=== PATIENT | female | born 1950 | race Caucasian/White ===

== ENCOUNTER 2019-12-20 13:13 | Outpatient (CLI) | payer MEDICAID, SELFPAY ==
--- NOTE | 2019-12-20 13:34 | XR_ITS ---
WS: [id number] Right knee, 3 views, 12/20/2019 Clinical Data: OSTEOARTHRITIS OF KNEE Comparison: None. Findings: No fractures or dislocations are seen. The joint spaces are normal. The patella is intact. The soft t issues are unremarkable. XR/XR knee RT 3V* [id number] Impression: Negative right knee.
== END 2019-12-20 13:14 | disposition home or self-care (01) ==
LOC: RADWPI 13:18
DX: M17.11 Unilateral primary osteoarthritis, right knee (principal)
CPT/HCPCS: 73562

== ENCOUNTER 2021-09-18 13:38 | Emergency (ER) | payer MEDICAID, SELFPAY ==
[2021-09-18 14:10] VITALS: BP 157/82; PULSE 78; RESP 20; TEMP 36.3; O2SAT 97; BMI 48.1
[2021-09-18 14:34] VITALS: RESP 16
--- NOTE | 2021-09-18 14:39 | W.ED.EXTPRO ---
Documented by User: СВЕТЛАНА Sheth 09/21/21 07:09 HPI - Extremity Problem General: Chief complaint: Extremity Problem,Nontraumatic Stated complaint: POSS CELLULITIS ON ANKLES/ITCHING/PAIN Time Seen by Provider: 09/18/21 14:19 Source: patient Mode of arrival: wheelchair Limitations: no limitations History of Present Illness: HPI Narrative: Patient is a 71-year-old female presents to ED today with a complaint of bilateral lower extremity redness and swelling. She tells me she has a chronic history of lymphedema and states her lower extremities are always red and swollen. She has a new area to her right anterior lower leg that recently began draining that she is concerned with. She has not been running fevers. No chills or body aches. Patient reports chronic lower extremity neuropathy. She has never seen wound care for her extremities and does not have home health services. MD Complaint: extremity pain and extremity swelling Pain Consistency: constant Location: left, right and lower extremity Radiation: none Relieving factors: nothing Exacerbating factors: nothing Associated symptoms: Reports no associated symptoms; Deny chest pain or fever(s) Review of Systems Const: Denies: fever(s), chills, body aches, fatigue or malaise Card: Denies: chest pain Resp: Denies: dyspnea Musc: Reports: extremity pain and extremity swelling; Denies: joint pain, joint swelling, joint redness or joint warmth Skin/Breast: Reports: other (chronic LE redness/swelling/pain) Neuro: Denies: numbness in extremities or sensory changes Physical Exam Const: COMMON NORMALS: no acute distress, patient oriented x3, no limitations and alert GENERAL APPEARANCE: cooperative NUTRITIONAL APPEARANCE: obese morbidly obese ORIENTATION/CONSCIOUSNESS: Yes awake, Yes oriented to person, Yes oriented to place and Yes oriented to time HENMT: COMMON NORMALS: normocephalic and atraumatic HEAD & SCALP: normal to inspection, normocephalic and atraumatic Resp: COMMON NORMALS: normal respiratory effort Cardio: COMMON NORMALS: regular rate and regular rhythm RATE: regular rate RHYTHM: regular rhythm Extremity: GENERAL: Yes normal exam except as noted OTHER: bilateral LE lymphedema present; there is redness equally bilaterally that patient reports is fairly chronic for her; she has two areas to anterior lower R leg that appear to be developing small superficial wounds and are draining clear/yellow fluid; there is no significant warmth; no lymphangitic streaking; distal pulses/cap refill intact; sensory patient states is at her baseline stating she has chronic neuropathy Neuro: COMMON NORMALS: patient oriented x3, moves all extremities, no focal motor deficits and no sensory deficits noted SENSORIUM/ORIENTATION: Yes alert, Yes oriented to person, Yes oriented to place and Yes oriented to time Skin: NARRATIVE SKIN EXAM: see extremity assessment Course Vital Signs: Vital signs: Vital Signs Temperature 97.4 F L 09/18/21 14:10 Pulse Rate 86 09/18/21 14:51 Respiratory Rate 18 09/18/21 14:51 Blood Pressure 156/69 09/18/21 14:51 Pulse Oximetry 97 09/18/21 14:51 MDM - Extremity (Nontraumatic) MDM Narrative: Medical decision making narrative: Patient here with chronic lower extremity lymphedema. Patient is not tachycardic or febrile. Do not feel labs at this point would be overly beneficial as they are unlikely to change management analyst. She states she is supposed to be wearing wraps/compression stockings but states she cannot bend over far enough to put them on. Patient does not see wound care or have any home health services. Will place referral for wound care for further evaluation and treatment. She has a small area to her right lower extremity that she is concerned about. We will go ahead and place her on keflex and have her begin applying mupirocin ointment. Return to ED precautions given. Discharge Plan Discharge Patient Disposition: Home Clinical Impression: Lymphedema of lower extremity Qualifiers: Laterality: bilateral Qualified Code(s): I89.0 - Lymphedema, not elsewhere classified Condition: Stable Prescriptions: New cephalexin 500 mg capsule 500 mg PO Q6H 7 Days Qty: 28 RF: 0 mupirocin 2 % ointment 1 applic topical BID Qty: 15 RF: 0 Discharge Orders: Discharge ED (Routine); Ordered 09/18/21 Ordered By: Jeanette Ivey Patient Instructions: Lymphedema, Lymphedema (ED) Coding Level of Care Code ED Camp Attendant for Chg Fwd Exam Detailed Documented by User: Jose Luis Griffin MD 09/23/21 11:04 HPI - Extremity Problem General: Chief complaint: Extremity Problem,Nontraumatic Stated complaint: POSS CELLULITIS ON ANKLES/ITCHING/PAIN Time Seen by Provider: 09/18/21 14:19 Course Vital Signs: Vital signs: Vital Signs Temperature 97.4 F L 09/18/21 14:10 Pulse Rate 86 09/18/21 14:51 Respiratory Rate 18 09/18/21 14:51 Blood Pressure 156/69 09/18/21 14:51 Pulse Oximetry 97 09/18/21 14:51 MDM - Extremity (Nontraumatic) MDM Narrative: Medical decision making narrative: I reviewed this documentation. Jose Luis Griffin MD Emergency Medicine Discharge Plan Discharge Patient Disposition: Home Clinical Impression: Lymphedema of lower extremity Qualifiers: Laterality: bilateral Qualified Code(s): I89.0 - Lymphedema, not elsewhere classified Condition: Stable Prescriptions: New cephalexin 500 mg capsule 500 mg PO Q6H 7 Days Qty: 28 RF: 0 mupirocin 2 % ointment 1 applic topical BID Qty: 15 RF: 0 Discharge Orders: Discharge ED (Routine); Ordered 09/18/21 Ordered By: Jeanette Ivey Patient Instructions: Lymphedema, Lymphedema (ED) Coding Level of Care Code ED Camp Attendant for Chg Fwd Exam Detailed
[2021-09-18 14:51] VITALS: BP 156/69; PULSE 86; RESP 18; O2SAT 97
--- NOTE | 2021-09-20 16:22 | DCPLANNER ---
manager salt had message to schedule a follow up appointment for patient with Wound Care. manager salt called the Wound Care clinic, spoke with Jazmyne, gave clinic patients information. A follow up appointment was scheduled for Friday, September 24, 2021 at 10:[address] [facility] [address]. Bernal. manager salt called patient and gave patient the appointment information.
--- NOTE | 2021-10-05 06:25 | DCPLANNER ---
Patient had a follow up appointment scheduled for 09.24.21 with Wound Care - patient did attend appointment.
== END 2021-09-18 14:53 | disposition home or self-care (01) ==
PROVIDERS: Emergency Provider Physician Assistant
DX: I89.0 Lymphedema, not elsewhere classified (principal)
CPT/HCPCS: 99281

== ENCOUNTER 2021-09-27 14:25 | Outpatient (CLI) | payer MEDICAID, SELFPAY | END 2021-09-27 14:26 | disposition home or self-care (01) | LOC: WOUND 14:25 | PROVIDERS: Visit Provider Nurse Practitioner Family | DX: L97.811 Non-pressure chronic ulcer of other part of right lower leg limited to breakdown of skin (principal); F17.210 Nicotine dependence, cigarettes, uncomplicated; J44.9 Chronic obstructive pulmonary disease, unspecified | CPT/HCPCS: 99212 ==

== ENCOUNTER 2022-03-28 06:00 | Outpatient (RCR) | payer MEDICAID, SELFPAY | END 2022-04-21 23:59 | disposition home or self-care (01) | LOC: SPT 06:00 | PROVIDERS: PCP Nurse Practitioner Family; Referring Provider Nurse Practitioner Family; Visit Provider Nurse Practitioner Family | DX: I87.2 Venous insufficiency (chronic) (peripheral) (principal); I89.0 Lymphedema, not elsewhere classified | CPT/HCPCS: 29581; 97140; 97161 ==

== ENCOUNTER 2022-04-11 08:29 | Emergency (ER) | payer MEDICAID, SELFPAY ==
[2022-04-11 08:47] VITALS: BP 176/71; PULSE 98; RESP 30; TEMP 36.6; O2SAT 96; BMI 45.1
--- NOTE | 2022-04-11 09:09 | ECG_ITS ---
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 Measurements Intervals [place] Rate: 97 P: 22 CT: 168 QRS: 84 QRSD: 89 T: 42 QT: 327 QTc: 417 Interpretive Statements SINUS RHYTHM Compared to ECG 05/07/2019 03:43:05 No significant changes Electronically Signed On 04-11-2022 21:22:10 CDT by Alessandra Fermin M.D. [id number]
--- NOTE | 2022-04-11 09:10 | XR_ITS ---
WS: [id number] Exam: XR chest 1V portable [id number] Date/Time of Exam: 04/11/2022 9:12 AM Reason For Exam: dyspnea/cough Comparison 04/27/2019. The lungs are fully expanded and clear. 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 Bony structures are intact. XR/XR chest 1V portable [id number] IMPRESSION: 1. No acute cardiopulmonary finding. 2. Aneurysmal dilatation of the thoracic aorta as noted above.
--- NOTE | 2022-04-11 09:20 | CT_ITS ---
WS: [id number] CT ABDOMEN PELVIS TECHNIQUE: Noncontrast CT of the abdomen and pelvis with coronal and sagittal reformatted images. CLINICAL INFORMATION: Abdominal pain COMPARISON: None. DLP: 1645.[address] scans at [facility] use at least one of these dose optimization techniques: automated e xposure control; mA and/or kV adjustment per patient size (includes targeted exams where dose is matc hed to clinical indication); or iterative reconstruction. FINDINGS:Slight induration with mild colonic thickening about the RIGHT hepatic flexure suspicious fo r mild or early colitis. Colon is otherwise normal in appearance. Lung bases are well aerated. Slight atelectasis LEFT lower lobe about the aorta and RIGHT lower lobe. Tortuous and ectatic lower thoracic and upper abdominal aorta measuring 4.5 cm in maximum dimension. Slightly irregular peripheral mural thrombus. This can be further evaluated with CTA. Distal abdomin al aorta is normal. Mild aortic calcification. Enlarged RIGHT hepatic lobe with mild hepatomegaly. Noncontrast gallbladder appears normal. RIGHT elayne al pelvic calculus measuring 10 mm. Mild dilatation RIGHT renal pelvis. No inflammatory stranding abo ut the RIGHT kidney. No obstructing ureteral calculi bilaterally. Adrenal glands are normal. Fatty atrophy of the pancreas. No free fluid in the abdomen or pelvis. Fibroid uterus. Normal sigmoid colon. No evidence of high-gra de small or large bowel obstruction. Fat-containing umbilical hernia with a small amount of induratio n. Grade 1 anterolisthesis L4 on L5. CT/CT abdomen pelvis con [id number] IMPRESSION: 1. Slight induration with mild colonic thickening about the RIGHT hepatic flex ure suspicious for mild or early colitis. Colon is otherwise normal in appearan ce. 2. Tortuous ectatic lower thoracic and upper abdominal aorta measuring 4.5 cm in maximum dimension with slightly regular peripheral mural thrombus. This can be further evaluated with CTA. 3. Mild hepatomegaly. 4. RIGHT renal pelvic calculus measuring 10 mm mild dilatation of the RIGHT re nal pelvis. No significant hydronephrosis. This is likely chronic. No obstructi ng ureteral calculi. 5. Fibroid uterus. 6. No free fluid in the abdomen or pelvis. 7. Fat-containing umbilical hernia with slight induration. 8. Grade 1 anterolisthesis L4 on L5. Notified Jaime Young DO at 04/11/2022 10:27 AM.
--- NOTE | 2022-04-11 09:21 | W.ED.GENADLT ---
HPI - General Adult General: Chief complaint: General Medical Stated complaint: SOB/body aches & pain Time Seen by Provider: 04/11/22 08:58 Source: patient Mode of arrival: ambulatory History of Present Illness: 72-year-old female presents emergency room complaining of shortness of breath and right upper quadrant right rib pain. She denies any chest pain states she has a chronic mildly productive cough that is mostly unchanged no vomiting no diarrhea no hematochezia or melena no hematemesis no coffee-ground she denies dysuria urgency or frequency. She states she had a low-grade fever last night. No attempt time arrival here. States she slept in a recliner last night although in talking to her I really related her flat to reposition and there is no report of orthopnea. Onset (ago): minute(s) Location: abdomen (Right upper quadrant right lower ribs) Severity: severe Quality: sharp Pain Consistency: constant Relieving factors: immobilization Exacerbating factors: movement Associated symptoms: Reports cough, dyspnea and short of breath; Deny chest pain, confusion, diaphoresis, decreased appetite, fevers/chills, headache(s), malaise, nausea, rash, palpitations, seizures, syncope, vomiting or weakness Treatments prior to arrival: none Review of Systems Const: Denies: fever(s), chills, fatigue, malaise or diaphoresis ENMT: Denies: throat pain, ear or mastoid pain, nasal discharge or nasal congestion Card: Denies: chest pain, palpitations or syncope Resp: Reports: dyspnea and productive cough (Baseline) GI: Reports: abdominal pain, bloating and GI cramping; Denies: nausea, vomiting, hematemesis, coffee ground emesis, dysphagia, diarrhea, constipation or hematochezia : Denies: flank pain, difficulty voiding, dysuria, urinary frequency or urinary urgency Musc: Denies: neck pain or back pain Skin/Breast: Denies: rash Neuro: Denies: headache(s) or confusion Physical Exam Const: COMMON NORMALS: no acute distress GENERAL APPEARANCE: cooperative and comfortable ORIENTATION/CONSCIOUSNESS: Yes awake, Yes oriented to person, Yes oriented to place and Yes oriented to time HENMT: COMMON NORMALS: normocephalic, atraumatic and hearing grossly normal bilaterally HEAD & SCALP: normocephalic and atraumatic Neck/C-Spine: COMMON NORMALS: no JVD Resp: COMMON NORMALS: normal respiratory effort, No retractions, No use of accessory muscles and clear to auscultation bilaterally AUSCULTATION: clear to auscultation bilaterally Cardio: COMMON NORMALS: no JVD, regular rate, regular rhythm and No murmurs present (Cardio) RATE: regular rate RHYTHM: regular rhythm GI: COMMON NORMALS: No hepatosplenomegaly present AUSCULTATION: Yes normoactive bowel sounds PALPATION: Yes Tenderness to palpation present (GI) Details: RUQ, No Guarding due to palpation present (GI) and Yes No hepatosplenomegaly present Extremity: COMMON NORMALS: normal to inspection, capillary refill normal, no clubbing, cyanosis or edema, no calf tenderness and no pedal edema Neuro: SENSORIUM/ORIENTATION: Yes oriented to person, Yes oriented to place and Yes oriented to time Skin: COMMON NORMALS: no rashes or lesions noted GENERAL SKIN EXAM: no rashes or lesions noted Course Vital Signs: Vital signs: Vital Signs Temperature 97.8 F 04/11/22 08:47 Pulse Rate 104 H 04/11/22 11:12 Respiratory Rate 18 04/11/22 11:12 Blood Pressure 161/84 04/11/22 11:12 Pulse Oximetry 98 04/11/22 11:12 [facility] - General Adult Medical Decision Making Patient improved she has a mild colitis she is feeling better after medications and fluids. We will discharge her home on Cipro and Flagyl. Clear liquids for the next few days and then recheck encouraged her also to follow-up with her aorta findings for her at a later date an outpatient. Radiology felt that the mural thrombus was likely chronic. Medical Records I reviewed the patient's medical records. Lab Data I reviewed the patient's lab results. : 04/11/22 09:00 04/11/22 09:00 Radiology Impressions Chest X-Ray 04/11/22 09:10 IMPRESSION: 1. No acute cardiopulmonary finding. 2. Aneurysmal dilatation of the thoracic aorta as noted above. Abdomen/Pelvis CT 04/11/22 09:20 IMPRESSION: 1. Slight induration with mild colonic thickening about the RIGHT hepatic flexure suspicious for mild or early colitis. Colon is otherwise normal in appearance. 2. Tortuous ectatic lower thoracic and upper abdominal aorta measuring 4.5 cm in maximum dimension with slightly regular peripheral mural thrombus. This can be further evaluated with CTA. 3. Mild hepatomegaly. 4. RIGHT renal pelvic calculus measuring 10 mm mild dilatation of the RIGHT renal pelvis. No significant hydronephrosis. This is likely chronic. No obstructing ureteral calculi. 5. Fibroid uterus. 6. No free fluid in the abdomen or pelvis. 7. Fat-containing umbilical hernia with slight induration. 8. Grade 1 anterolisthesis L4 on L5. Notified Jaime Young DO at 04/11/2022 10:27 AM. Laboratory Results WBC 8.6 10^3/uL (4.0-10.0) 04/11/22 09:00 RBC 5.14 10^6/uL (4.1-5.3) 04/11/22 09:00 Hgb 15.7 g/dL (11.5-15.3) H 04/11/22 09:00 Hct 47.5 % (37.0-47.0) H 04/11/22 09:00 MCV 92.4 fl (81-99) 04/11/22 09:00 MCH 30.5 pg (28.0-34.0) 04/11/22 09:00 MCHC 33.1 g/dL (30.0-36.0) 04/11/22 09:00 RDW 13.5 % (12.1-15.1) 04/11/22 09:00 Plt Count 131 10^3/cmm (130-400) 04/11/22 09:00 MPV 10.0 fL (7.4-10.4) 04/11/22 09:00 Neut % (Auto) 82.4 % 04/11/22 09:00 Lymph % (Auto) 9.8 % 04/11/22 09:00 [place] % (Auto) 7.3 % 04/11/22 09:00 Eos % (Auto) 0.1 % 04/11/22 09:00 Baso % (Auto) 0.2 % 04/11/22 09:00 Neut # (Auto) 7.10 10^3/uL (1.8-7.7) 04/11/22 09:00 Lymph # (Auto) 0.9 10^3/uL (0.8-4.8) 04/11/22 09:00 [place] # (Auto) 0.6 10^3/uL (0.2-0.9) 04/11/22 09:00 Eos # (Auto) 0.0 10^3/uL (0.0-0.8) 04/11/22 09:00 Baso # (Auto) 0.0 10^3/uL (0.0-0.1) 04/11/22 09:00 Nucleated RBC % (auto) 0 % 04/11/22 09:00 Nucleated RBCs # 0.0 /100WBC 04/11/22 09:00 Sodium 136 mmol/L (136-145) 04/11/22 09:00 Potassium 4.0 mmol/L (3.5-5.1) 04/11/22 09:00 Chloride 101 mmol/L (98-107) 04/11/22 09:00 Carbon Dioxide 24 mmol/L (22-29) 04/11/22 09:00 Anion Gap 15.0 (5-19) 04/11/22 09:00 BUN 14 mg/dL (8-23) 04/11/22 09:00 Creatinine 0.6 mg/dL (0.5-0.9) 04/11/22 09:00 GFR Calculation Not Reportable 04/11/22 09:00 Glucose 112 mg/dL (65-115) 04/11/22 09:00 Calculated Osmolality 283 mOsm/kg (285-295) L 04/11/22 09:00 Lactic Acid 1.8 mmol/L (0.5-2.2) 04/11/22 09:00 Calcium 9.6 mg/dL (8.5-10.5) 04/11/22 09:00 Total Bilirubin 1.0 mg/dL (0.15-1.2) 04/11/22 09:00 AST 18 U/L (0-32) 04/11/22 09:00 ALT 18 U/L (0-33) 04/11/22 09:00 Alkaline Phosphatase 109 IU/L (35-105) H 04/11/22 09:00 Total Protein 8.0 g/dL (6.6-8.7) 04/11/22 09:00 Albumin 4.2 g/dL (3.5-5.2) 04/11/22 09:00 Globulin 3.8 g/dL (1.3-4.6) 04/11/22 09:00 Lipase 36 U/L (13-60) 04/11/22 09:00 Urine Color Yellow (Yellow) 04/11/22 09:25 Urine Appearance Clear (CLEAR) 04/11/22 09:25 Urine pH 7.0 (5-7) 04/11/22 09:25 Ur Specific [place] 1.005 (1.005-1.030) 04/11/22 09:25 Urine Protein Neg (Negative) 04/11/22 09:25 Urine Glucose (UA) Norm (Normal) 04/11/22 09:25 Urine Ketones Negative (Negative) 04/11/22 09:25 Urine Blood 3+ (Negative) H 04/11/22 09:25 Urine Nitrate Negative (Negative) 04/11/22 09:25 Urine Bilirubin Neg (Negative) 04/11/22 09:25 Urine Urobilinogen Norm mg/dL (Negative) 04/11/22 09:25 Ur Leukocyte Esterase Negative (Negative) 04/11/22 09:25 Urine RBC 50-80 /hpf (0-2) H 04/11/22 09:25 Urine WBC 0-4 /hpf (0-5) H 04/11/22 09:25 Ur Squamous Epith Cells 5-10 /hpf (0-5) H 04/11/22 09:25 Amorphous Sediment Not Reportable 04/11/22 09:25 Urine Bacteria 1+ /hpf (NONE) H 04/11/22 09:25 Urine Mucus Trace /hpf 04/11/22 09:25 Coronavirus 229E (PCR) Not detected (NOT DETECT) 04/11/22 09:35 SARS-CoV-2 (PCR) Not detected (NOT DETECT) 04/11/22 09:35 Discharge Plan Discharge Patient Disposition: Home Clinical Impression: Colitis, COPD (chronic obstructive pulmonary disease), Renal calculus, right Condition: Stable Prescriptions: New ciprofloxacin HCl 500 mg tablet 500 mg PO BID Qty: 14 0RF Bactrim DS 800-160 mg tablet 1 tab PO BID 7 Days Qty: 14 0RF hydrocodone-acetaminophen 5-325 mg tablet 1 tab PO Q6H PRN (Reason: pain) Qty: 15 0RF promethazine 25 mg tablet 25 mg PO Q6H PRN (Reason: nausea and vomiting) Qty: 20 0RF No Action albuterol sulfate 2.5 mg /3 mL (0.083 %) solution for nebulization 2.5 mg inhalation Q6H PRN (Reason: Shortness Of Breath) 0RF Tylenol Arthritis 650 mg Tablet Extended Release 1,300 mg PO Q8H PRN (Reason: Pain) 0RF ibuprofen 200 mg Tablet 400 mg PO Q4H PRN (Reason: Pain) 0RF ProAir HFA 90 mcg/actuation HFA aerosol inhaler 2 puff INHALATION Q6H PRN (Reason: Shortness Of Breath) 0RF Discharge Orders: Discharge ED (Routine); Ordered 04/11/22 Ordered By: Jaime Young Referrals: Chelsey Clark, PRECISION INSPECTOR [Primary Care Provider] - Discharge Diet: Full LIquid Discharge Activity: Increase activity as tolerated Patient Instructions: Opioid Safety Activity Restrictions/Additional Instructions: Antibiotics for 1 week for the colitis. Full liquid diet for 3 days and advance as tolerated. Follow-up with your primary care doctor for your COPD as well as the hematuria which is most likely caused from the right renal stone, the stone is not obstructing the ureter at this time. Coding Level of Care Code ED Content Editor for Magi Fwd Exam Comprehensive
[2022-04-11 09:32] LABS: Basophils % 0.2 %; Eosinophils % 0.1 %; Hematocrit 47.5 % (37.0-47.0); Hemoglobin 15.7 g/dL (11.5-15.3); Lymphocytes # 0.9 10^3/uL (0.8-4.8); Lymphocytes % 9.8 %; Mean Corpuscular HGB Conc 33.1 g/dL (30.0-36.0); Mean Corpuscular Hemoglobin 30.5 pg (28.0-34.0); Mean Corpuscular Volume 92.4 fl (81-99); Monocytes # 0.6 10^3/uL (0.2-0.9); Monocytes % 7.3 %; Neutrophils % 82.4 %; Nucleated Red Blood Cells % 0 %; Platelet Count 131 10^3/cmm (130-400); Red Blood Count 5.14 10^6/uL (4.1-5.3); Red Cell Distribution Width 13.5 % (12.1-15.1); White Blood Count 8.6 10^3/uL (4.0-10.0)
--- NOTE | 2022-04-11 09:32 | PC.NURSE ---
EKG done at 0930 and shown to ER doctor
--- NOTE | 2022-04-11 09:44 | PC.PHAR ---
pt and pts states the pt takes no rx medications except uses a proair inhaler and albuterol for the nebulizer machine-
[2022-04-11 09:45] LABS: Lactic Sepsis W/Reflex 1.8 mmol/L (0.5-2.2)
[2022-04-11 09:47] LABS: Alanine Aminotransferase 18 U/L (0-33); Albumin Level 4.2 g/dL (3.5-5.2); Alkaline Phosphatase 109 IU/L (35-105); Aspartate Amino Transferase 18 U/L (0-32); Blood Urea Nitrogen 14 mg/dL (8-23); Calcium 9.6 mg/dL (8.5-10.5); Carbon Dioxide 24 mmol/L (22-29); Chloride 101 mmol/L (98-107); Globulin 3.8 g/dL (1.3-4.6); Glucose 112 mg/dL (65-115); Osmolality Calculated 283 mOsm/kg (285-295); Sodium 136 mmol/L (136-145)
[2022-04-11 09:51] VITALS: RESP 23; O2SAT 94
[2022-04-11] MEDS: morphine 4 mg/mL SDV 1 mL IVP (09:51)
[2022-04-11] MEDS: ondansetron 2 mg/ML SDV 2 mL 4 MG IVP (09:51)
[2022-04-11 09:55] LABS: Lipase 36 U/L (13-60)
[2022-04-11 10:03] VITALS: BP 141/88; PULSE 85; RESP 22; O2SAT 93
[2022-04-11 10:25] LABS: Bilirubin Urine Neg (Negative); Blood Urine 3+ (Negative); Glucose Urine UA Norm (Normal); Ketones Urine Negative (Negative); Nitrate Urine Negative (Negative); Protein Urine Neg (Negative); Specific Gravity, Urine 1.005 (1.005-1.030); Urine Appearance Clear (CLEAR); Urine Color Yellow (Yellow); Urobilinogen Urine Norm (Negative)
[2022-04-11 10:26] LABS: Add Urine Culture? Yes; Add Urine Microscopic? YES; Bacteria Urine 1+ /hpf; Leukocyte Esterase Urine Negative (Negative); Mucus Urine TRACE /hpf; RBC Urine 50-80 /hpf (0-2); WBC Urine 0-4 /hpf (0-5)
[2022-04-11 10:31] VITALS: BP 107/72; PULSE 101; RESP 18; O2SAT 90
[2022-04-11 11:12] VITALS: BP 161/84; PULSE 104; RESP 18; O2SAT 98
[2022-04-11 13:59] LABS: Adenovirus Not Detected (NOT DETECT); Chlamydia Pneumoniae Not Detected (NOT DETECT); Coronavirus 229E,HKU1,NL63,OC4 Not Detected (NOT DETECT); Human Metapneumovirus Not Detected (NOT DETECT); Human Rhinovirus/Enterovirus Not Detected (NOT DETECT); Influenza A Not Detected (NOT DETECT); Influenza A H1 Not Detected (NOT DETECT); Influenza A H1-2009 Not Detected (NOT DETECT); Influenza A H3 Not Detected (NOT DETECT); Influenza B Not Detected (NOT DETECT); Mycoplasma Pneumoniae Not Detected (NOT DETECT); Parainfluenza Virus Type 1 Not Detected (NOT DETECT); Parainfluenza Virus Type 2 Not Detected (NOT DETECT); Parainfluenza Virus Type 3 Not Detected (NOT DETECT); Parainfluenza Virus Type 4 Not Detected (NOT DETECT); Respiratory Syncytial Virus A Not Detected (NOT DETECT); Respiratory Syncytial Virus B Not Detected (NOT DETECT); SARS-COV-2 Not Detected (NOT DETECT)
== END 2022-04-11 11:26 | disposition home or self-care (01) ==
PROVIDERS: Emergency Provider Family Medicine; PCP Nurse Practitioner Family
DX: K52.9 Noninfective gastroenteritis and colitis, unspecified (principal); J44.9 Chronic obstructive pulmonary disease, unspecified; N20.0 Calculus of kidney; I74.09 Other arterial embolism and thrombosis of abdominal aorta; R10.11 Right upper quadrant pain; Z20.822 Contact with and (suspected) exposure to COVID-19
CPT/HCPCS: 71045; 74176; 80053; 81001; 83605; 83690; 85025; 87086; 87635; 93005; 96374; 96375; 99285; J2270; J2405

== ENCOUNTER 2022-04-22 | Outpatient (RCR) | payer MEDICAID, SELFPAY | END 2022-05-22 23:59 | disposition home or self-care (01) | LOC: SPT | PROVIDERS: PCP Nurse Practitioner Family; Referring Provider Nurse Practitioner Family; Visit Provider Nurse Practitioner Family | DX: I89.0 Lymphedema, not elsewhere classified (principal) | CPT/HCPCS: 97140 ==

== ENCOUNTER 2022-07-18 10:31 | Outpatient (CLI) | payer MEDICAID, SELFPAY ==
[2022-07-18 11:13] LABS: Basophils % 0.6 %; Eosinophils # 0.1 10^3/uL (0.0-0.8); Eosinophils % 0.9 %; Hematocrit 48.6 % (37.0-47.0); Hemoglobin 15.9 g/dL (11.5-15.3); Lymphocytes # 1.7 10^3/uL (0.8-4.8); Lymphocytes % 32.5 %; Mean Corpuscular HGB Conc 32.7 g/dL (30.0-36.0); Mean Corpuscular Hemoglobin 31.5 pg (28.0-34.0); Mean Corpuscular Volume 96.2 fl (81-99); Monocytes # 0.5 10^3/uL (0.2-0.9); Monocytes % 8.9 %; Neutrophils # 3.02 10^3/uL (1.8-7.7); Neutrophils % 56.9 %; Nucleated Red Blood Cells % 0 %; Platelet Count 115 10^3/cmm (130-400); Red Blood Count 5.05 10^6/uL (4.1-5.3); Red Cell Distribution Width 13.2 % (12.1-15.1); White Blood Count 5.3 10^3/uL (4.0-10.0)
[2022-07-18 11:17] LABS: LAB Peripheral Smear Sent for Review
== END 2022-07-18 10:32 | disposition home or self-care (01) ==
PROVIDERS: PCP Nurse Practitioner Family; Visit Provider Nurse Practitioner Family
DX: D69.6 Thrombocytopenia, unspecified (principal)
CPT/HCPCS: 36415; 80503; 85025

== ENCOUNTER → 2022-11-07 13:52 | Outpatient (BNVA) | payer MEDICAID, SELFPAY | PROVIDERS: PCP Nurse Practitioner Family; Visit Provider Thoracic Surgery (Cardiothoracic Vascular Surgery) | DX: I89.0 Lymphedema, not elsewhere classified (principal); L97.822 Non-pressure chronic ulcer of other part of left lower leg with fat layer exposed | CPT/HCPCS: 97597; 99213 ==

== ENCOUNTER → 2022-11-09 14:11 | Outpatient (BNVA) | payer MEDICAID, SELFPAY | PROVIDERS: PCP Nurse Practitioner Family; Visit Provider Thoracic Surgery (Cardiothoracic Vascular Surgery) | DX: L97.821 Non-pressure chronic ulcer of other part of left lower leg limited to breakdown of skin (principal) | CPT/HCPCS: 29581; A6252 ==

== ENCOUNTER → 2022-11-14 15:02 | Outpatient (BNVA) | payer MEDICAID, SELFPAY | PROVIDERS: PCP Nurse Practitioner Family; Visit Provider Thoracic Surgery (Cardiothoracic Vascular Surgery) | DX: I89.0 Lymphedema, not elsewhere classified (principal); L97.822 Non-pressure chronic ulcer of other part of left lower leg with fat layer exposed | CPT/HCPCS: 97597 ==

== ENCOUNTER → 2022-11-21 13:02 | Outpatient (BNVA) | payer MEDICAID, SELFPAY | PROVIDERS: PCP Nurse Practitioner Family; Visit Provider Thoracic Surgery (Cardiothoracic Vascular Surgery) | DX: I89.0 Lymphedema, not elsewhere classified (principal); L97.822 Non-pressure chronic ulcer of other part of left lower leg with fat layer exposed | CPT/HCPCS: 99212 ==

== ENCOUNTER → 2023-01-16 10:29 | Outpatient (BNVA) | payer MEDICAID, SELFPAY | PROVIDERS: PCP Nurse Practitioner Family; Referring Provider Nurse Practitioner Family; Visit Provider Specialist | DX: R56.9 Unspecified convulsions (principal) | CPT/HCPCS: 99205 ==